=== PATIENT | female | born 1975 | race Caucasian/White ===

== ENCOUNTER 2021-05-02 07:44 | Inpatient (IN) | payer OTHER, SELFPAY ==
[2021-05-02 08:55] LABS: #Eosinphils 0.1 thou/uL (0.0-0.7); #Lymphocytes 0.9 thou/uL (1.20-3.40); #Monocytes 0.3 thou/uL (0.11-0.59); #Neutrophils 2.9 thou/uL (1.40-6.50); %Basophils 0.7 % (0.0-1.0); %Eosinophils 1.3 % (0.0-10.0); %Lymphocytes 21.4 % (21.0-51.0); %Monocytes 6.9 % (0.0-10.0); %Neutrophils 69.8 % (42.0-75.0); Hemoglobin 12.5 g/dL (12.0-16.0); Mean Corpuscular HGB CONC 33.9 g/dL (32.0-36.0); Mean Corpuscular Hemoglobin 30.6 pg (27.0-31.0); Mean Corpuscular Volume 90.4 fL (78.0-98.0); Mean Platelet Volume 8.1 fL (7.4-10.4); Platelet Count 153 thou/uL (130-400); RBC Distribution Width 12.2 % (11.5-14.5); Red Blood Cell (RBC) Count 4.09 mill/uL (4.20-5.40); White Blood Cell (WBC) Count 4.1 thou/uL (4.8-10.8)
[2021-05-02 09:29] LABS: ALT (SGPT) 7 U/L (8-55); Albumin 1.4 g/dL (3.5-5.0); Alkaline Phosphatase 142 U/L (40-110); BUN (Urea Nitrogen) 15 mg/dL (7.0-18.7); Calc. Creatinine Clearance 0 mL/min (70-130); Calcium 7.1 mg/dL (7.8-10.44); Carbon Dioxide 17 mmol/L (22-29); Chloride 111 mmol/L (98-107); Glucose 86 mg/dL (70-105); Sodium 136 mmol/L (136-145)
[2021-05-02 09:35] LABS: Bilirubin, Total 0.2 mg/dL (0.2-1.2)
[2021-05-02] MEDS ORDERED: Iopamidol 370 76% 100 ML VIAL ONE (09:37)
[2021-05-02 09:43] LABS: AST (SGOT) 22 U/L (5-34); Anion Gap 12 mmol/L (10-20); Globulin 3.4 g/dL (2.4-3.5); Protein, Total 4.8 g/dL (6.0-8.3)
[2021-05-02 09:59] LABS: Lipase 7 U/L (8-78)
[2021-05-02] MEDS ORDERED: Morphine 4 MG/ML VIAL ONE ×2 (11:00→15:29)
[2021-05-02] MEDS ORDERED: Ondansetron ODT 4 MG TAB ONE (11:00)
[2021-05-02] MEDS ORDERED: Acetaminophen 325 MG TAB PO PRN (17:04)
[2021-05-02] MEDS ORDERED: Ondansetron PF 4 MG/2 ML Vial IVP PRN (17:04)
[2021-05-02] MEDS ORDERED: Enoxaparin Sodium 80 MG/0.8 ML SYRINGE SC SCH (18:30)
[2021-05-02] MEDS ORDERED: Famotidine 20 MG TAB PO SCH (21:00)
[2021-05-02] MEDS: HYDROcodone/Acetaminophen 10/325 mg Tablet PO PRN (21:00)
[2021-05-02] MEDS: Nicotine 14 MG PATCH TD SCH (21:01)
[2021-05-02] MEDS ORDERED: Morphine 4 MG/ML VIAL SLOW IVP SCH (21:15)
[2021-05-02 21:16] VITALS: BMI 29.2
[2021-05-02 22:35] LABS: SARS-CoV-2 NAA Rapid Test Not Detected (NotDetected)
[2021-05-03] MEDS: HYDROcodone/Acetaminophen 10/325 mg Tablet PO PRN (05:24)
[2021-05-03] MEDS ORDERED: Fentanyl 100 MCG/2 ML VIAL SLOW IVP SCH (05:45)
[2021-05-03 06:46] LABS: #Eosinphils 0.1 thou/uL (0.0-0.7); #Monocytes 0.3 thou/uL (0.11-0.59); #Neutrophils 1.4 thou/uL (1.40-6.50); %Basophils 0.7 % (0.0-1.0); %Eosinophils 2.2 % (0.0-10.0); %Lymphocytes 35.4 % (21.0-51.0); %Monocytes 9.6 % (0.0-10.0); %Neutrophils 52.1 % (42.0-75.0); Mean Corpuscular HGB CONC 34.7 g/dL (32.0-36.0); Mean Corpuscular Hemoglobin 31.3 pg (27.0-31.0); Mean Corpuscular Volume 90.2 fL (78.0-98.0); Platelet Count 142 thou/uL (130-400); RBC Distribution Width 12.2 % (11.5-14.5); Red Blood Cell (RBC) Count 3.51 mill/uL (4.20-5.40); White Blood Cell (WBC) Count 2.7 thou/uL (4.8-10.8)
[2021-05-03 07:03] LABS: Anion Gap 10 mmol/L (10-20); BUN (Urea Nitrogen) 16 mg/dL (7.0-18.7); Calc. Creatinine Clearance 91 mL/min (70-130); Calcium 6.9 mg/dL (7.8-10.44); Carbon Dioxide 23 mmol/L (22-29); Chloride 106 mmol/L (98-107); Glucose 82 mg/dL (70-105); Potassium 3.5 mmol/L (3.5-5.1); Sodium 135 mmol/L (136-145)
[2021-05-03] MEDS ORDERED: predniSONE 50 MG TAB PO SCH (09:00)
[2021-05-03] MEDS ORDERED: predniSONE 20 MG TAB PO SCH (09:00)
[2021-05-03] MEDS: Enoxaparin Sodium 80 MG/0.8 ML SYRINGE SC SCH ×2 (10:09→20:16)
[2021-05-03 19:22] LABS: Bilirubin Negative (Negative); Blood, Urine Small (Negative); Glucose, Urine (Dipstick) Negative (Negative); Ketone, Urine Negative (Negative); Leukocyte Negative (Negative); Nitrite Negative (Negative); Protein, Urine (Dipstick) > or equal to 300 mg/dL (Neg-Trace)
[2021-05-03 19:23] LABS: Clarity Clear (Clear)
[2021-05-03 19:30] LABS: RBC/HPF 0-3 HPF (0-3); Squamous Epithelial 0-3 HPF (0-3); WBC/HPF 0-3 HPF (0-3)
[2021-05-03 19:31] LABS: Bacteria/HPF 1+ HPF (None Seen)
[2021-05-03] MEDS: Nicotine 14 MG PATCH TD SCH (20:17)
[2021-05-04 06:46] LABS: #Lymphocytes 0.6 thou/uL (1.20-3.40); #Monocytes 0.2 thou/uL (0.11-0.59); #Neutrophils 1.3 thou/uL (1.40-6.50); %Basophils 1.6 % (0.0-1.0); %Lymphocytes 29.1 % (21.0-51.0); %Monocytes 9.4 % (0.0-10.0); %Neutrophils 59.9 % (42.0-75.0); Hemoglobin 10.7 g/dL (12.0-16.0); Mean Corpuscular Hemoglobin 29.5 pg (27.0-31.0); Mean Corpuscular Volume 89.2 fL (78.0-98.0); Mean Platelet Volume 7.9 fL (7.4-10.4); Platelet Count 166 thou/uL (130-400); RBC Distribution Width 11.9 % (11.5-14.5); Red Blood Cell (RBC) Count 3.65 mill/uL (4.20-5.40); White Blood Cell (WBC) Count 2.2 thou/uL (4.8-10.8)
[2021-05-04 07:09] LABS: Anion Gap 7 mmol/L (10-20); BUN (Urea Nitrogen) 17 mg/dL (7.0-18.7); Calc. Creatinine Clearance 105 mL/min (70-130); Calcium 7.1 mg/dL (7.8-10.44); Carbon Dioxide 24 mmol/L (22-29); Chloride 108 mmol/L (98-107); Glucose 96 mg/dL (70-105); Potassium 4.1 mmol/L (3.5-5.1); Sodium 135 mmol/L (136-145)
[2021-05-04] MEDS: predniSONE 20 MG TAB PO SCH (08:19)
[2021-05-04] MEDS: Enoxaparin Sodium 80 MG/0.8 ML SYRINGE SC SCH ×2 (09:10→20:51)
[2021-05-04] MEDS ORDERED: Amlodipine 5 MG TAB PO SCH (17:30)
[2021-05-04 17:39] LABS: Creatinine, Urine 135.83 mg/dL (47-110)
[2021-05-04] MEDS ORDERED: Lisinopril 5 MG TAB PO SCH (17:45)
[2021-05-04 20:01] LABS: ANA Symphony (Qualitative) POSITIVE (Negative); ANA Symphony (Quantitative) 3.5 Ratio (< 0.7 Negative); Jo-1 IgG Antibody 0.6 EliAU/mL (<7 Negative); RNP70 IgG Antibody 0.5 EliAU/mL (<7 Negative); Scleroderma-70 IgG Antibody 1.5 EliAU/mL (<7 Negative); Smith D IgG Antibody 9.9 EliAU/mL (<7 Negative)
[2021-05-04 20:03] LABS: ANA Symphony (Qualitative) POSITIVE (Negative); ANA Symphony (Quantitative) 3.4 Ratio (< 0.7 Negative); EliA Thy New Method **** NEW METHOD ****; EliA Vaculitis New Method **** NEW METHOD ****; Jo-1 IgG Antibody 0.7 EliAU/mL (<7 Negative); RNP70 IgG Antibody 0.5 EliAU/mL (<7 Negative); SSA/Ro IgG Antibody 0.9 EliAU/mL (<7 Negative); SSB/La IgG Antibody 1.2 EliAU/mL (<7 Negative); Scleroderma-70 IgG Antibody 1.5 EliAU/mL (<7 Negative); Smith D IgG Antibody 8.9 EliAU/mL (<7 Negative); Thyroid Peroxidase IgG Ab 8.4 IU/mL (<25 Normal)
[2021-05-04] MEDS: Nicotine 14 MG PATCH TD SCH (20:51)
[2021-05-05 06:20] LABS: Anion Gap 9 mmol/L (10-20); BUN (Urea Nitrogen) 23 mg/dL (7.0-18.7); Calc. Creatinine Clearance 102 mL/min (70-130); Calcium 7.1 mg/dL (7.8-10.44); Carbon Dioxide 22 mmol/L (22-29); Chloride 111 mmol/L (98-107); Glucose 108 mg/dL (70-105); Potassium 3.6 mmol/L (3.5-5.1); Sodium 138 mmol/L (136-145)
[2021-05-05 06:27] LABS: #Lymphocytes 0.8 thou/uL (1.20-3.40); #Monocytes 0.2 thou/uL (0.11-0.59); #Neutrophils 1.9 thou/uL (1.40-6.50); %Basophils 0.3 % (0.0-1.0); %Eosinophils 0.2 % (0.0-10.0); %Lymphocytes 27.5 % (21.0-51.0); %Monocytes 7.7 % (0.0-10.0); %Neutrophils 64.2 % (42.0-75.0); Hemoglobin 10.6 g/dL (12.0-16.0); Mean Corpuscular HGB CONC 34.3 g/dL (32.0-36.0); Mean Corpuscular Hemoglobin 30.5 pg (27.0-31.0); Mean Platelet Volume 8.2 fL (7.4-10.4); Platelet Count 170 thou/uL (130-400); RBC Distribution Width 11.9 % (11.5-14.5); Red Blood Cell (RBC) Count 3.47 mill/uL (4.20-5.40); White Blood Cell (WBC) Count 2.9 thou/uL (4.8-10.8)
[2021-05-05] MEDS ORDERED: Amlodipine 5 MG TAB PO SCH (09:00)
[2021-05-05] MEDS: predniSONE 20 MG TAB PO SCH (09:16)
[2021-05-05] MEDS: Lisinopril 5 MG TAB PO SCH (09:17)
[2021-05-05] MEDS: Enoxaparin Sodium 80 MG/0.8 ML SYRINGE SC SCH ×2 (09:18→21:37)
[2021-05-05 12:08] LABS: HBSAB Concentration Less than 8.00 mIU/mL; HBSAg Index 0.43 S/CO (0-0.99); Hep B Core Total Ab Non-Reactive (NonReactive); Hep B Core Total Index 0.09 S/CO (0-0.79); Hep B Surf AB Non-Reactive (NonReactive); Hep B Surf Ag Non-Reactive S/CO (NonReactive); Hep C IgG Ab Non-Reactive (NonReactive); Hep C Index 0.15 S/CO (0-0.79)
[2021-05-05 14:42] LABS: Urine Total Volume 350 mL (600-1600)
[2021-05-05 15:32] LABS: Protein - 24 Hr 5355 mg/24 hr (Less than 300); Protein, Urine 1530 mg/dL (1-14)
[2021-05-05] MEDS: Nicotine 14 MG PATCH TD SCH (21:37)
[2021-05-06] MEDS: Lisinopril 5 MG TAB PO SCH (08:06)
[2021-05-06] MEDS: predniSONE 20 MG TAB PO SCH (08:06)
[2021-05-06] MEDS: Enoxaparin Sodium 80 MG/0.8 ML SYRINGE SC SCH (08:06)
[2021-05-06 08:36] LABS: #Lymphocytes 1.5 thou/uL (1.20-3.40); #Monocytes 0.3 thou/uL (0.11-0.59); #Neutrophils 2.8 thou/uL (1.40-6.50); %Eosinophils 0.6 % (0.0-10.0); %Lymphocytes 32.6 % (21.0-51.0); %Monocytes 6.2 % (0.0-10.0); %Neutrophils 59.7 % (42.0-75.0); Hemoglobin 11.8 g/dL (12.0-16.0); Mean Corpuscular HGB CONC 33.1 g/dL (32.0-36.0); Mean Corpuscular Hemoglobin 29.4 pg (27.0-31.0); Mean Corpuscular Volume 88.7 fL (78.0-98.0); Mean Platelet Volume 7.7 fL (7.4-10.4); Platelet Count 211 thou/uL (130-400); Red Blood Cell (RBC) Count 4.02 mill/uL (4.20-5.40); White Blood Cell (WBC) Count 4.7 thou/uL (4.8-10.8)
[2021-05-06 08:54] LABS: Anion Gap 12 mmol/L (10-20); BUN (Urea Nitrogen) 23 mg/dL (7.0-18.7); Calc. Creatinine Clearance 109 mL/min (70-130); Calcium 7.1 mg/dL (7.8-10.44); Carbon Dioxide 18 mmol/L (22-29); Chloride 112 mmol/L (98-107); Glucose 93 mg/dL (70-105); Potassium 3.6 mmol/L (3.5-5.1); Sodium 138 mmol/L (136-145)
[2021-05-06 12:14] VITALS: BP 132/91; TEMP 98.3
[2021-05-07 19:38] LABS: A/G Ratio 0.4 (0.7-1.7); Albumin 1.4 g/dL (2.9-4.4); Alpha 1 0.2 g/dL (0.0-0.4); Alpha 2 1.3 g/dL (0.4-1.0); Beta 0.8 g/dL (0.7-1.3); Gamma 1.1 g/dL (0.4-1.8); Globulin, Total 3.4 g/dL (2.2-3.9); M-Spike Not Observed g/dL (Not Observed); Protein Electrophoresis Intrp Note: (.)
[2021-05-07 19:38] LABS: Albumin-Ur 39.1 % (.); Alpha 1 - Ur 9.6 % (.); Alpha 2 - Ur 11.5 % (.); Beta-Ur 16.6 % (.); Gamma-Ur 23.1 % (.); M-Spike,% Not Observed % (Not Observed); Protein, Urine 1134.8 mg/dL (Not Estab.)
== END 2021-05-06 14:45 | disposition home or self-care (01) | DRG 300 ==
LOC: ERS 07:44 → ERHOLD 16:16 → SURG B 20:45
PROVIDERS: ADMIT Internal Medicine; ATTEND Internal Medicine
DX: I82.890 Acute embolism and thrombosis of other specified veins (principal); N17.9 Acute kidney failure, unspecified; E78.5 Hyperlipidemia, unspecified; E78.00 Pure hypercholesterolemia, unspecified; I12.9 Hypertensive chronic kidney disease with stage 1 through stage 4 chronic kidney disease, or unspecified chronic kidney disease; F17.210 Nicotine dependence, cigarettes, uncomplicated; M32.9 Systemic lupus erythematosus, unspecified; I25.10 Atherosclerotic heart disease of native coronary artery without angina pectoris; E83.51 Hypocalcemia; N18.2 Chronic kidney disease, stage 2 (mild); R80.9 Proteinuria, unspecified; Z20.822 Contact with and (suspected) exposure to COVID-19; I25.2 Old myocardial infarction; Z95.5 Presence of coronary angioplasty implant and graft; Z86.73 Personal history of transient ischemic attack (TIA), and cerebral infarction without residual deficits; Z98.890 Other specified postprocedural states; Z90.710 Acquired absence of both cervix and uterus; Z88.8 Allergy status to other drugs, medicaments and biological substances; Z88.0 Allergy status to penicillin; Z88.2 Allergy status to sulfonamides; Z86.711 Personal history of pulmonary embolism
CPT/HCPCS: 36415; 71046; 74176; 74177; 80048; 80053; 81001; 82570; 83516; 83690; 83880; 84156; 84165; 84166; 84484; 85025; 85652; 86037; 86038; 86140; 86160; 86225; 86235; 86376; 86704; 86706; 86803; 87340; 93005; 93306; 93970; 96374; J1650; J2270; J3010; J7512; Q0162; Q9967; U0002

== ENCOUNTER 2021-11-05 09:02 | Outpatient (CLI) | payer OTHER | END 2021-11-05 09:03 | disposition home or self-care (01) | LOC: BICMAMMO 09:02 | PROVIDERS: ATTEND Internal Medicine Rheumatology | DX: M81.8 Other osteoporosis without current pathological fracture (principal); M85.851 Other specified disorders of bone density and structure, right thigh | CPT/HCPCS: 77080 ==

== ENCOUNTER 2021-12-13 11:15 | Observation (INO) | payer OTHER ==
[2021-12-13] MEDS ORDERED: Ondansetron PF 4 MG/2 ML Vial ONE (13:07)
[2021-12-13 13:44] LABS: #Basophils 0.1 thou/uL (0.0-0.2); #Monocytes 0.5 thou/uL (0.11-0.59); #Neutrophils 3.7 thou/uL (1.40-6.50); %Basophils 1.3 % (0.0-1.0); %Eosinophils 0.1 % (0.0-10.0); %Lymphocytes 31.9 % (21.0-51.0); %Monocytes 7.7 % (0.0-10.0); Hemoglobin 13.7 g/dL (12.0-16.0); Mean Corpuscular HGB CONC 32.6 g/dL (32.0-36.0); Platelet Count 321 thou/uL (130-400); RBC Distribution Width 14.8 % (11.5-14.5); Red Blood Cell (RBC) Count 4.57 mill/uL (4.20-5.40); White Blood Cell (WBC) Count 6.2 thou/uL (4.8-10.8)
[2021-12-13 14:05] LABS: ALT (SGPT) 11 U/L (8-55); AST (SGOT) 21 U/L (5-34); Albumin 1.6 g/dL (3.5-5.0); Alkaline Phosphatase 148 U/L (40-110); Anion Gap 12 mmol/L (10-20); BUN (Urea Nitrogen) 8 mg/dL (7.0-18.7); Bilirubin, Total Less than 0.2 mg/dL (0.2-1.2); Calc. Creatinine Clearance 0 mL/min (70-130); Calcium 7.6 mg/dL (7.8-10.44); Carbon Dioxide 25 mmol/L (22-29); Chloride 105 mmol/L (98-107); Estimated GFR 112; Globulin 2.9 g/dL (2.4-3.5); Glucose 91 mg/dL (70-105); Lipase 24 U/L (8-78); Potassium 3.6 mmol/L (3.5-5.1); Protein, Total 4.5 g/dL (6.0-8.3); Sodium 138 mmol/L (136-145)
[2021-12-13] MEDS ORDERED: HYDROmorphone 0.5 MG/0.5 ML SYRINGE ONE ×2 (14:25→16:57)
[2021-12-13] MEDS ORDERED: Labetalol HCl 100 MG/20 ML VIAL ONE (14:42)
[2021-12-13] MEDS ORDERED: Promethazine 25 MG TAB ONE (15:07)
[2021-12-13] MEDS ORDERED: Dexamethasone 10 MG/ML VIAL ONE (15:21)
[2021-12-13 15:40] LABS: BHCG - Serum Negative (NEGATIVE); Pregs Control Background? CLEAR/WHITE (CLR/WHITE); Pregs Control Bar Appear? YES (CONTROL BAR)
[2021-12-13] MEDS ORDERED: Iopamidol-370 76% 500 ML 1 ML ONE (16:01)
[2021-12-13] MEDS ORDERED: Acetaminophen 325 MG TAB PO PRN (16:21)
[2021-12-13] MEDS ORDERED: Senokot S 8.6-50 MG TAB PO PRN (16:21)
[2021-12-13] MEDS ORDERED: Ondansetron ODT 4 MG TAB PO PRN (16:21)
[2021-12-13] MEDS ORDERED: hydrALAZINE 20 MG/ML VIAL SLOW IVP PRN (16:27)
[2021-12-13] MEDS ORDERED: Morphine 2 MG/ML VIAL SLOW IVP PRN (17:00)
[2021-12-13 18:00] VITALS: BMI 25.7
[2021-12-13] MEDS ORDERED: HYDROmorphone 0.5 MG/0.5 ML SYRINGE SLOW IVP PRN (18:00)
[2021-12-13] MEDS: Sodium Chloride 0.9% 1,000 ML IV SCH ×2 (18:28→22:46)
[2021-12-13] MEDS: methylPREDNISolone Sod Succ/PF 125 MG/2 ML VIAL IVP SCH (19:37)
[2021-12-13] MEDS: Morphine 2 MG/ML VIAL SLOW IVP PRN ×2 (19:37→23:53)
[2021-12-13] MEDS: Famotidine/PF 20 mg/2ml Vial SLOW IVP SCH (19:38)
[2021-12-13] MEDS: Enoxaparin Sodium 80 MG/0.8 ML SYRINGE SC SCH (19:38)
[2021-12-13] MEDS: Hydroxychloroquine Sulfate 200 MG TAB PO SCH (20:32)
[2021-12-14] MEDS: Ondansetron PF 4 MG/2 ML Vial IVP PRN ×2 (00:09→20:24)
[2021-12-14] MEDS: Sodium Chloride 0.9% 1,000 ML IV SCH (05:14)
[2021-12-14] MEDS: methylPREDNISolone Sod Succ/PF 125 MG/2 ML VIAL IVP SCH ×3 (08:42→20:25)
[2021-12-14] MEDS: Enoxaparin Sodium 80 MG/0.8 ML SYRINGE SC SCH ×2 (08:42→20:21)
[2021-12-14] MEDS: Famotidine/PF 20 mg/2ml Vial SLOW IVP SCH ×2 (08:43→20:24)
[2021-12-14] MEDS: Hydroxychloroquine Sulfate 200 MG TAB PO SCH ×2 (08:43→20:23)
[2021-12-14] MEDS: Lisinopril 5 MG TAB PO SCH (08:43)
[2021-12-14 08:55] LABS: ALT (SGPT) 7 U/L (8-55); AST (SGOT) 16 U/L (5-34); Albumin 1.2 g/dL (3.5-5.0); Alkaline Phosphatase 113 U/L (40-110); Anion Gap 11 mmol/L (10-20); BUN (Urea Nitrogen) 9 mg/dL (7.0-18.7); Bilirubin, Total Less than 0.2 mg/dL (0.2-1.2); CRP (Inflammatory) Less than 0.50 mg/dL (= or < 0.5); Calc. Creatinine Clearance 127 mL/min (70-130); Calcium 6.8 mg/dL (7.8-10.44); Carbon Dioxide 18 mmol/L (22-29); Chloride 111 mmol/L (98-107); Estimated GFR 113; Globulin 2.4 g/dL (2.4-3.5); Glucose 84 mg/dL (70-105); Lipase 18 U/L (8-78); Magnesium 1.4 mg/dL (1.6-2.6); Potassium 4.1 mmol/L (3.5-5.1); Protein, Total 3.6 g/dL (6.0-8.3); Sodium 136 mmol/L (136-145)
[2021-12-14] MEDS ORDERED: Magnesium Sulfate In Water 4 GM in Premix Bag 1 BAG IVPB SCH (10:30)
[2021-12-14] MEDS ORDERED: Mycophenolate 250 MG CAP PO SCH ×2 (10:30→11:00)
[2021-12-14] MEDS ORDERED: Magnesium Sulfate 4 GM in Sodium Chloride 0.9% 250 ML 250 ML IVPB SCH (10:30)
[2021-12-14 10:54] LABS: Hemoglobin 11.9 g/dL (12.0-16.0); Mean Corpuscular HGB CONC 32.8 g/dL (32.0-36.0); Mean Corpuscular Hemoglobin 30.2 pg (27.0-31.0); Mean Platelet Volume 8.7 fL (7.4-10.4); Platelet Count 348 thou/uL (130-400); RBC Distribution Width 14.7 % (11.5-14.5); Red Blood Cell (RBC) Count 3.93 mill/uL (4.20-5.40)
[2021-12-14] MEDS: Lactated Ringer's 1,000 ML IV SCH (11:16)
[2021-12-14 12:42] LABS: Band 6 % (5-11); Lymphocytes 45 % (21-51); MDiff Complete? YES; Monocytes 10 % (0-10); Neutrophil 38 % (42-75); Reactive Lymphocytes 1 % (0-10)
[2021-12-14] MEDS: Mycophenolate 250 MG CAP PO SCH (20:22)
[2021-12-14] MEDS: Morphine 2 MG/ML VIAL SLOW IVP PRN (20:24)
[2021-12-15] MEDS: Lactated Ringer's 1,000 ML IV SCH (01:49)
[2021-12-15 06:08] LABS: #Lymphocytes 1.8 thou/uL (1.20-3.40); #Monocytes 0.4 thou/uL (0.11-0.59); #Neutrophils 3.1 thou/uL (1.40-6.50); %Basophils 0.3 % (0.0-1.0); %Eosinophils 0.9 % (0.0-10.0); %Lymphocytes 33.9 % (21.0-51.0); %Neutrophils 56.9 % (42.0-75.0); Hemoglobin 12.5 g/dL (12.0-16.0); Mean Corpuscular HGB CONC 32.7 g/dL (32.0-36.0); Mean Corpuscular Hemoglobin 30.6 pg (27.0-31.0); Mean Corpuscular Volume 93.4 fL (78.0-98.0); Mean Platelet Volume 8.7 fL (7.4-10.4); Platelet Count 346 thou/uL (130-400); RBC Distribution Width 14.8 % (11.5-14.5); Red Blood Cell (RBC) Count 4.09 mill/uL (4.20-5.40); White Blood Cell (WBC) Count 5.4 thou/uL (4.8-10.8)
[2021-12-15 06:28] LABS: Anion Gap 11 mmol/L (10-20); BUN (Urea Nitrogen) 13 mg/dL (7.0-18.7); Calc. Creatinine Clearance 119 mL/min (70-130); Carbon Dioxide 18 mmol/L (22-29); Chloride 113 mmol/L (98-107); Estimated GFR 111; Glucose 116 mg/dL (70-105); Potassium 4.6 mmol/L (3.5-5.1); Sodium 137 mmol/L (136-145)
[2021-12-15 08:33] VITALS: BP 153/97
[2021-12-15] MEDS: Enoxaparin Sodium 80 MG/0.8 ML SYRINGE SC SCH (09:05)
[2021-12-15] MEDS: Famotidine/PF 20 mg/2ml Vial SLOW IVP SCH (09:05)
[2021-12-15] MEDS: Lisinopril 5 MG TAB PO SCH (09:06)
[2021-12-15] MEDS: Hydroxychloroquine Sulfate 200 MG TAB PO SCH (09:06)
[2021-12-15] MEDS: methylPREDNISolone Sod Succ/PF 125 MG/2 ML VIAL IVP SCH ×2 (09:06→14:51)
[2021-12-15] MEDS: Mycophenolate 250 MG CAP PO SCH (11:06)
[2021-12-15 13:20] VITALS: TEMP 98.4
== END 2021-12-15 15:12 | disposition home or self-care (01) ==
LOC: SUATTDRO 11:15 → ERS 11:15 → T4-B 17:50
PROVIDERS: ADMIT Internal Medicine; ATTEND Internal Medicine
DX: M32.19 Other organ or system involvement in systemic lupus erythematosus (principal); D73.5 Infarction of spleen; M87.851 Other osteonecrosis, right femur; M87.852 Other osteonecrosis, left femur; I10 Essential (primary) hypertension; F17.210 Nicotine dependence, cigarettes, uncomplicated; I25.10 Atherosclerotic heart disease of native coronary artery without angina pectoris; J90 Pleural effusion, not elsewhere classified; J98.11 Atelectasis; E83.42 Hypomagnesemia; R59.1 Generalized enlarged lymph nodes; Z86.010 Personal history of colon polyps; Z86.73 Personal history of transient ischemic attack (TIA), and cerebral infarction without residual deficits; Z79.01 Long term (current) use of anticoagulants; Z79.899 Other long term (current) drug therapy; Z88.0 Allergy status to penicillin; Z88.2 Allergy status to sulfonamides; Z88.8 Allergy status to other drugs, medicaments and biological substances; Z89.611 Acquired absence of right leg above knee; Z20.822 Contact with and (suspected) exposure to COVID-19
CPT/HCPCS: 36415; 70450; 74177; 80048; 80053; 83690; 83735; 84703; 85025; 85652; 86140; 96372; 96375; 96376; G0378; J1100; J1170; J1650; J2270; J2405; J2930; J3475; J7050; J7120; J7517; Q0169; Q9967; S0028; U0003; U0005

== ENCOUNTER 2022-04-30 09:52 | Day surgery (SDC) | payer OTHER ==
[2022-04-30] MEDS ORDERED: CYCLOPHOSPHAMIDE IVPB SCH ×2 (10:30)
[2022-04-30] MEDS ORDERED: WATER IVPB SCH ×2 (10:30)
[2022-04-30] MEDS ORDERED: DEXTROSE 5% IVPB SCH ×2 (10:30)
[2022-04-30] MEDS ORDERED: Ondansetron 2MG/ML MDV 10 MG, Dexamethasone Sod Phosphate 10 MG in Sodium Chloride 0.9%... IVP SCH (10:45)
[2022-04-30 12:05] VITALS: BP 124/76; TEMP 97.1
== END 2022-04-30 13:56 | disposition home or self-care (01) ==
LOC: ONC/OP 09:52
PROVIDERS: ATTEND Internal Medicine Rheumatology
DX: M32.14 Glomerular disease in systemic lupus erythematosus (principal); Z88.0 Allergy status to penicillin; Z88.2 Allergy status to sulfonamides; Z88.8 Allergy status to other drugs, medicaments and biological substances
CPT/HCPCS: 96375; 96413; J1100; J2405; J7070; J9070

== ENCOUNTER 2022-05-16 12:30 | Day surgery (SDC) | payer OTHER ==
[~2022-05-16 12:30] MED LIST: CYCLOPHOSPHAMIDE IVPB SCH; DEXTROSE 5% IVPB SCH; WATER IVPB SCH
[2022-05-16 14:06] VITALS: BP 151/86; TEMP 98.1
== END 2022-05-16 16:52 | disposition home or self-care (01) ==
LOC: ONC/OP 12:30
PROVIDERS: ATTEND Internal Medicine Rheumatology
DX: M32.14 Glomerular disease in systemic lupus erythematosus (principal); Z88.0 Allergy status to penicillin; Z88.2 Allergy status to sulfonamides; Z88.8 Allergy status to other drugs, medicaments and biological substances
CPT/HCPCS: 96413; J7070; J9070

== ENCOUNTER → 2022-05-30 | Day surgery (SDC) | payer OTHER ==
[2022-05-30 14:26] VITALS: BP 123/80; TEMP 98.5
== END | disposition home or self-care (01) ==
LOC: ONC/OP 12:49
PROVIDERS: ATTEND Internal Medicine Rheumatology
DX: M32.14 Glomerular disease in systemic lupus erythematosus (principal); Z88.0 Allergy status to penicillin; Z88.2 Allergy status to sulfonamides; Z88.8 Allergy status to other drugs, medicaments and biological substances
CPT/HCPCS: 96413; J7070; J9070

== ENCOUNTER 2022-06-13 08:49 | Day surgery (SDC) | payer OTHER ==
[2022-06-13 11:34] VITALS: BP 128/86; TEMP 98.7
== END 2022-06-13 13:40 | disposition home or self-care (01) ==
LOC: ONC/OP 08:49
PROVIDERS: ATTEND Internal Medicine Rheumatology
DX: M32.14 Glomerular disease in systemic lupus erythematosus (principal); Z88.0 Allergy status to penicillin; Z88.2 Allergy status to sulfonamides; Z88.8 Allergy status to other drugs, medicaments and biological substances
CPT/HCPCS: 96413; J7070; J9070

== ENCOUNTER 2022-06-13 08:56 | Outpatient (CLI) | payer OTHER ==
[2022-06-13] MEDS ORDERED: Iopamidol 370 76% 100 ML VIAL ONE (17:50)
== END 2022-06-13 08:57 | disposition home or self-care (01) ==
LOC: CT 08:56
PROVIDERS: ATTEND Internal Medicine Hematology & Oncology
DX: D68.61 Antiphospholipid syndrome (principal); R59.0 Localized enlarged lymph nodes; K86.3 Pseudocyst of pancreas; K86.89 Other specified diseases of pancreas; J90 Pleural effusion, not elsewhere classified; M87.9 Osteonecrosis, unspecified
CPT/HCPCS: 74178; 82565; Q9967

== ENCOUNTER 2022-07-10 08:25 | Day surgery (SDC) | payer OTHER ==
[2022-07-10 13:38] VITALS: BP 141/88; TEMP 98.7
== END 2022-07-10 11:10 | disposition home or self-care (01) ==
LOC: ONC/OP 08:25
PROVIDERS: ATTEND Internal Medicine Rheumatology
DX: M32.14 Glomerular disease in systemic lupus erythematosus (principal); Z88.0 Allergy status to penicillin; Z88.2 Allergy status to sulfonamides; Z88.8 Allergy status to other drugs, medicaments and biological substances
CPT/HCPCS: 96413; J7070; J9070

== ENCOUNTER 2022-11-19 08:23 | Outpatient (CLI) | payer OTHER | END 2022-11-19 08:24 | disposition home or self-care (01) | LOC: SCSMRI 08:23 | PROVIDERS: ATTEND Internal Medicine Hematology & Oncology | DX: K76.89 Other specified diseases of liver (principal); K86.9 Disease of pancreas, unspecified; D18.09 Hemangioma of other sites | CPT/HCPCS: 74183 ==

== ENCOUNTER 2023-10-03 02:03 | Inpatient (IN) | payer OTHER ==
[2023-10-03] MEDS ORDERED: fentaNYL 50 mcg/mL 1 mL Vial ONE (02:15)
[2023-10-03 02:23] LABS: #Basophils 0.04 10x3/uL (0.0-0.2); %Basophils 0.3 % (0.0-1.0); %Eosinophils 2.7 % (0.0-10.0); %Lymphocytes 16.1 % (21.0-51.0); %Monocytes 7.1 % (0.0-10.0); %Neutrophils 73.3 % (42.0-75.0); Hematocrit 30.4 % (36.0-47.0); Hemoglobin 10.3 g/dL (12.0-16.0); Mean Corpuscular HGB CONC 33.9 g/dL (32.0-36.0); Mean Corpuscular Hemoglobin 31.5 pg (27.0-31.0); Mean Platelet Volume 10.4 fL (7.4-10.4); Platelet Count 330 10x3/uL (130-400); RBC Distribution Width 13.8 % (11.5-14.5); Red Blood Cell (RBC) Count 3.27 mill/uL (4.20-5.40)
[2023-10-03 02:38] LABS: ALT (SGPT) 10 U/L (8-55); AST (SGOT) 17 U/L (5-34); Albumin 3.1 g/dL (3.5-5.0); Alkaline Phosphatase 95 U/L (40-110); Anion Gap 18 mmol/L (10-20); BUN (Urea Nitrogen) 42 mg/dL (7.0-18.7); Bilirubin, Total 0.2 mg/dL (0.2-1.2); Calc. Creatinine Clearance 0 mL/min (70-130); Calcium 7.9 mg/dL (7.8-10.44); Carbon Dioxide 17 mmol/L (22-29); Chloride 102 mmol/L (98-107); Estimated GFR 22; Globulin 3.3 g/dL (2.4-3.5); Glucose 124 mg/dL (70-105); Protein, Total 6.4 g/dL (6.0-8.3); Sodium 132 mmol/L (136-145)
[2023-10-03] MEDS ORDERED: HYDROmorphone 0.5 MG/0.5 ML SYRINGE ONE ×3 (02:44→06:13)
[2023-10-03] MEDS ORDERED: NOREPINEPHRINE 8 MG/250 ML-D5W 250 ML ONE (05:51)
[2023-10-03] MEDS ORDERED: Ondansetron ODT 4 MG TAB PO PRN (05:59)
[2023-10-03] MEDS ORDERED: Ondansetron PF 4 MG/2 ML Vial IVP PRN (05:59)
[2023-10-03] MEDS ORDERED: Acetaminophen 650 MG Suppository PR PRN (05:59)
[2023-10-03 08:09] LABS: #Basophils 0.03 10x3/uL (0.0-0.2); %Basophils 0.3 % (0.0-1.0); %Eosinophils 0.5 % (0.0-10.0); %Lymphocytes 16.4 % (21.0-51.0); %Monocytes 7.2 % (0.0-10.0); %Neutrophils 74.9 % (42.0-75.0); Hematocrit 24.4 % (36.0-47.0); Hemoglobin 8.1 g/dL (12.0-16.0); Mean Corpuscular HGB CONC 33.2 g/dL (32.0-36.0); Mean Corpuscular Hemoglobin 31.4 pg (27.0-31.0); Mean Corpuscular Volume 94.6 fL (78.0-98.0); Mean Platelet Volume 10.4 fL (7.4-10.4); Platelet Count 300 10x3/uL (130-400); RBC Distribution Width 13.8 % (11.5-14.5); Red Blood Cell (RBC) Count 2.58 mill/uL (4.20-5.40)
[2023-10-03 08:23] LABS: INR-International Normal Ratio 1.1; Prothrombin Time 14.1 sec (12.0-14.7)
[2023-10-03 08:25] LABS: PTT 37.2 sec (22.9-36.1)
[2023-10-03 08:41] LABS: Iron 29 ug/dL (50-170); Iron Binding Capacity, Total 179 mcg/dL (265-497)
[2023-10-03] MEDS: Lactated Ringer's 1,000 ML IV SCH (08:57)
[2023-10-03 09:02] VITALS: BMI 23.6
[2023-10-03] MEDS: Morphine 4 MG/ML VIAL SLOW IVP SCH (09:32)
[2023-10-03 10:15] LABS: Bacteria/HPF None Seen HPF (None Seen); Bilirubin Negative (Negative); Blood, Urine Negative (Negative); CAUTI Indications for Culture Pelvic or flank pain; Clarity Clear (Clear); Glucose, Urine (Dipstick) Normal (Negative); Ketone, Urine Negative (Negative); Leukocyte Negative Leu/uL (Negative); Nitrite Negative (Negative); Protein, Urine (Dipstick) 10 mg/dL (Neg-Trace); RBC/HPF 0-3 HPF (0-3); Specific Gravity, Urine 1.013 (1.002-1.036); Squamous Epithelial None Seen HPF (0-3); Urobilinogen Normal mg/dL (Less than 2); pH, Urine 5.5 (5.0-9.0)
[2023-10-03 10:17] LABS: Urine Culture Reflex Yes Yes
[2023-10-03] MEDS ORDERED: NOREPINEPHRINE 8 MG/250 ML-D5W 250 ML IVPB SCH (10:30)
[2023-10-03] MEDS: Acetaminophen 650 MG/20.3 ML UDCUP PO PRN (11:40)
[2023-10-03] MEDS: Gabapentin 400 MG CAP PO SCH (13:33)
[2023-10-03] MEDS: Morphine 4 MG/ML VIAL SLOW IVP PRN (13:33)
[2023-10-03 14:18] LABS: Hematocrit 28.5 % (36.0-47.0); Hemoglobin 9.5 g/dL (12.0-16.0)
[2023-10-03] MEDS: Mycophenolate 250 MG CAP PO SCH ×2 (15:31→21:20)
[2023-10-03] MEDS: Sodium Chloride 0.9% 1,000 ML IV SCH (15:55)
[2023-10-03] MEDS: Hydrocortisone Sod Succ/PF 100 mg/2 ml Vial IVP SCH (16:23)
[2023-10-03] MEDS: oxyCODONE/Acetaminophen 5 mg/325 mg Tablet PO PRN (19:31)
[2023-10-03] MEDS: Cyclobenzaprine 10 MG TAB PO SCH (23:31)
[2023-10-04] MEDS: diphenhydrAMINE 50 MG/ML VIAL IVP SCH ×2 (01:23→10:01)
[2023-10-04] MEDS: fentaNYL 50 mcg/mL 1 mL Vial SLOW IVP PRN ×2 (01:59→08:45)
[2023-10-04] MEDS: oxyCODONE/Acetaminophen 5 mg/325 mg Tablet PO PRN ×2 (02:41→08:48)
[2023-10-04 05:32] LABS: Amphetamine Not Detected (NotDetected); Barbiturates Screen Not Detected (NotDetected); Benzodiazepine Screen Not Detected (NotDetected); Cocaine Metabolite Screen Not Detected (NotDetected); Methadone Not Detected (NotDetected); Methamphetamine Not Detected (NotDetected); Opiate Screen Detected (NotDetected); Oxycodone Screen Detected (NotDetected); Phencyclidine (PCP) Not Detected (NotDetected); THC/Cannabinoid Screen Not Detected (NotDetected); Tricyclic Screen Not Detected (NotDetected)
[2023-10-04 06:43] LABS: #Basophils Less than 0.03 10x3/uL (0.0-0.2); #Eosinphils Less than 0.03 10x3/uL (0.0-0.7); %Basophils 0.1 % (0.0-1.0); %Eosinophils 0.1 % (0.0-10.0); %Lymphocytes 10.5 % (21.0-51.0); %Monocytes 6.7 % (0.0-10.0); %Neutrophils 81.8 % (42.0-75.0); Hemoglobin 8.5 g/dL (12.0-16.0); Mean Corpuscular Volume 91.2 fL (78.0-98.0); Mean Platelet Volume 10.8 fL (7.4-10.4); Platelet Count 193 10x3/uL (130-400); RBC Distribution Width 14.9 % (11.5-14.5); Red Blood Cell (RBC) Count 2.74 mill/uL (4.20-5.40)
[2023-10-04] MEDS ORDERED: diphenhydrAMINE 50 MG/ML VIAL IVP PRN (08:48)
[2023-10-04 09:41] LABS: Anion Gap 10 mmol/L (10-20); BUN (Urea Nitrogen) 27 mg/dL (7.0-18.7); Calc. Creatinine Clearance 62 mL/min (70-130); Calcium 7.7 mg/dL (7.8-10.44); Carbon Dioxide 15 mmol/L (22-29); Chloride 119 mmol/L (98-107); Estimated GFR 63; Glucose 94 mg/dL (70-105); Potassium 4.9 mmol/L (3.5-5.1); Sodium 139 mmol/L (136-145)
[2023-10-04] MEDS ORDERED: diphenhydrAMINE 50 MG/ML VIAL IM PRN (09:58)
[2023-10-04] MEDS ORDERED: diphenhydrAMINE 25 MG CAP PO PRN (09:58)
[2023-10-04] MEDS ORDERED: Promethazine HCl 25 MG/ML VIAL IM PRN (09:58)
[2023-10-04] MEDS ORDERED: Naloxone HCl 0.4 mg/ml Vial IV PRN (09:58)
[2023-10-04] MEDS ORDERED: Communication Order-Pharmacy FS SCH (10:00)
[2023-10-04] MEDS: Lidocaine 4% Patch TD SCH (10:01)
[2023-10-04] MEDS: HYDROmorphone/PF 10 MG in Sodium Chloride 0.9% 99 ML IV PRN (11:51)
[2023-10-04] MEDS: Transdermal Patch Removal TOP SCH (21:09)
[2023-10-04] MEDS: Ondansetron PF 4 MG/2 ML Vial IVP PRN (21:09)
[2023-10-04] MEDS: diphenhydrAMINE 50 MG/ML VIAL IVP PRN (21:24)
[2023-10-05 07:12] LABS: #Basophils 0.03 10x3/uL (0.0-0.2); %Basophils 0.3 % (0.0-1.0); %Eosinophils 0.7 % (0.0-10.0); %Lymphocytes 10.2 % (21.0-51.0); %Monocytes 8.9 % (0.0-10.0); %Neutrophils 79.2 % (42.0-75.0); Hematocrit 23.9 % (36.0-47.0); Hemoglobin 7.9 g/dL (12.0-16.0); Mean Corpuscular HGB CONC 33.1 g/dL (32.0-36.0); Mean Corpuscular Hemoglobin 29.9 pg (27.0-31.0); Mean Corpuscular Volume 90.5 fL (78.0-98.0); Mean Platelet Volume 10.1 fL (7.4-10.4); Platelet Count 278 10x3/uL (130-400); RBC Distribution Width 14.9 % (11.5-14.5); Red Blood Cell (RBC) Count 2.64 mill/uL (4.20-5.40)
[2023-10-05 08:03] LABS: Anion Gap 10 mmol/L (10-20); BUN (Urea Nitrogen) 10 mg/dL (7.0-18.7); CK (CPK) 420 U/L (29-168); Calc. Creatinine Clearance 110 mL/min (70-130); Calcium 7.8 mg/dL (7.8-10.44); Carbon Dioxide 17 mmol/L (22-29); Chloride 117 mmol/L (98-107); Estimated GFR 111; Glucose 89 mg/dL (70-105); Potassium 4.5 mmol/L (3.5-5.1); Sodium 139 mmol/L (136-145)
[2023-10-05] MEDS ORDERED: Lisinopril 5 MG TAB PO SCH (09:00)
[2023-10-05] MEDS: Sodium Chloride 0.9% 1,000 ML IV SCH (09:34)
[2023-10-05] MEDS: Lisinopril 10 MG TAB PO SCH (09:50)
[2023-10-05] MEDS: Acetaminophen 325 MG TAB PO SCH (22:43)
[2023-10-05 23:24] LABS: #Basophils Less than 0.03 10x3/uL (0.0-0.2); %Basophils 0.2 % (0.0-1.0); %Eosinophils 0.7 % (0.0-10.0); %Lymphocytes 10.7 % (21.0-51.0); %Monocytes 10.5 % (0.0-10.0); %Neutrophils 77.1 % (42.0-75.0); Hematocrit 22.6 % (36.0-47.0); Hemoglobin 7.8 g/dL (12.0-16.0); Mean Corpuscular HGB CONC 34.5 g/dL (32.0-36.0); Mean Corpuscular Volume 89.7 fL (78.0-98.0); Mean Platelet Volume 9.8 fL (7.4-10.4); Platelet Count 287 10x3/uL (130-400); RBC Distribution Width 14.3 % (11.5-14.5); Red Blood Cell (RBC) Count 2.52 mill/uL (4.20-5.40)
[2023-10-05] MEDS: Cefepime 2 GM in Sodium Chloride 0.9% 100 ML IVPB SCH (23:39)
[2023-10-06] MEDS: Vancomycin (BATCH) 1.5 GM in Premix 1 BAG IVPB SCH (00:30)
[2023-10-06 01:27] LABS: Bacteria/HPF None Seen HPF (None Seen); Bilirubin Negative (Negative); Blood, Urine Negative (Negative); CAUTI Indications for Culture Fever or rigors; Clarity Clear (Clear); Glucose, Urine (Dipstick) Normal (Negative); Ketone, Urine Negative (Negative); Leukocyte Negative Leu/uL (Negative); Nitrite Negative (Negative); Protein, Urine (Dipstick) 30 mg/dL (Neg-Trace); RBC/HPF None Seen HPF (0-3); Specific Gravity, Urine 1.006 (1.002-1.036); Squamous Epithelial 0-3 HPF (0-3); Urobilinogen Normal mg/dL (Less than 2); WBC/HPF 0-3 HPF (0-3)
[2023-10-06 01:29] LABS: Urine Culture Reflex No No
[2023-10-06 01:43] LABS: ALT (SGPT) 13 U/L (8-55); AST (SGOT) 24 U/L (5-34); Albumin 2.1 g/dL (3.5-5.0); Alkaline Phosphatase 74 U/L (40-110); Anion Gap 13 mmol/L (10-20); BUN (Urea Nitrogen) 8 mg/dL (7.0-18.7); Bilirubin, Total 0.4 mg/dL (0.2-1.2); Calc. Creatinine Clearance 108 mL/min (70-130); Calcium 7.8 mg/dL (7.8-10.44); Carbon Dioxide 18 mmol/L (22-29); Chloride 112 mmol/L (98-107); Estimated GFR 111; Globulin 2.8 g/dL (2.4-3.5); Glucose 105 mg/dL (70-105); Protein, Total 4.9 g/dL (6.0-8.3); Sodium 139 mmol/L (136-145)
[2023-10-06 07:25] LABS: Complement-C3 126 mg/dL (83-193); Complement-C4 40 mg/dL (15-57)
[2023-10-06 08:41] LABS: #Basophils 0.04 10x3/uL (0.0-0.2); %Basophils 0.4 % (0.0-1.0); %Eosinophils 0.9 % (0.0-10.0); %Lymphocytes 7.2 % (21.0-51.0); %Monocytes 9.4 % (0.0-10.0); %Neutrophils 81.4 % (42.0-75.0); Hematocrit 23.1 % (36.0-47.0); Hemoglobin 7.7 g/dL (12.0-16.0); Mean Corpuscular HGB CONC 33.3 g/dL (32.0-36.0); Mean Corpuscular Hemoglobin 31.3 pg (27.0-31.0); Mean Corpuscular Volume 93.9 fL (78.0-98.0); Mean Platelet Volume 11.6 fL (7.4-10.4); Platelet Count 207 10x3/uL (130-400); RBC Distribution Width 14.5 % (11.5-14.5); Red Blood Cell (RBC) Count 2.46 mill/uL (4.20-5.40)
[2023-10-06 08:59] LABS: Anion Gap 13 mmol/L (10-20); BUN (Urea Nitrogen) 8 mg/dL (7.0-18.7); Calc. Creatinine Clearance 122 mL/min (70-130); Calcium 8.1 mg/dL (7.8-10.44); Carbon Dioxide 17 mmol/L (22-29); Chloride 115 mmol/L (98-107); Estimated GFR 114; Glucose 92 mg/dL (70-105); Potassium 4.3 mmol/L (3.5-5.1); Sodium 141 mmol/L (136-145)
[2023-10-06] MEDS: Vancomycin (BATCH) 1.25 GM in Premix 1 BAG IVPB SCH (09:08)
[2023-10-06] MEDS: BELIMUMAB 200 MG SC SCH (17:06)
[2023-10-06] MEDS: Transdermal Patch Removal TOP SCH (22:02)
[2023-10-07 05:09] LABS: Vancomycin, Random 30.9 ug/mL (See Comment)
[2023-10-07 08:36] LABS: #Basophils Less than 0.03 10x3/uL (0.0-0.2); %Basophils 0.2 % (0.0-1.0); %Eosinophils 2.4 % (0.0-10.0); %Lymphocytes 10.5 % (21.0-51.0); %Monocytes 12.2 % (0.0-10.0); %Neutrophils 73.6 % (42.0-75.0); Hematocrit 21.6 % (36.0-47.0); Hemoglobin 7.3 g/dL (12.0-16.0); Mean Corpuscular HGB CONC 33.8 g/dL (32.0-36.0); Mean Corpuscular Hemoglobin 30.2 pg (27.0-31.0); Mean Corpuscular Volume 89.3 fL (78.0-98.0); Mean Platelet Volume 9.7 fL (7.4-10.4); Platelet Count 367 10x3/uL (130-400); RBC Distribution Width 14.1 % (11.5-14.5); Red Blood Cell (RBC) Count 2.42 mill/uL (4.20-5.40)
[2023-10-07 09:02] LABS: Anion Gap 10 mmol/L (10-20); BUN (Urea Nitrogen) 9 mg/dL (7.0-18.7); Calc. Creatinine Clearance 114 mL/min (70-130); Carbon Dioxide 21 mmol/L (22-29); Chloride 112 mmol/L (98-107); Estimated GFR 112; Glucose 91 mg/dL (70-105); Potassium 3.4 mmol/L (3.5-5.1); Sodium 140 mmol/L (136-145)
[2023-10-07] MEDS: oxyCODONE/Acetaminophen 5 mg/325 mg Tablet PO PRN (11:12)
[2023-10-07] MEDS: Enoxaparin 60 MG (0.6 mL) SYRINGE SC SCH (21:08)
[2023-10-07] MEDS: Vancomycin HCl 750 MG in Sodium Chloride 0.9% 250 ML 250 ML IVPB SCH (21:08)
[2023-10-07] MEDS: oxyCODONE ER 10 MG TAB PO SCH (21:08)
[2023-10-08 04:51] LABS: #Basophils 0.03 10x3/uL (0.0-0.2); %Basophils 0.4 % (0.0-1.0); %Eosinophils 4.6 % (0.0-10.0); %Lymphocytes 15.5 % (21.0-51.0); %Monocytes 13.2 % (0.0-10.0); Hematocrit 22.5 % (36.0-47.0); Hemoglobin 7.7 g/dL (12.0-16.0); Mean Corpuscular HGB CONC 34.2 g/dL (32.0-36.0); Mean Corpuscular Hemoglobin 31.2 pg (27.0-31.0); Mean Corpuscular Volume 91.1 fL (78.0-98.0); Mean Platelet Volume 9.6 fL (7.4-10.4); Platelet Count 446 10x3/uL (130-400); Red Blood Cell (RBC) Count 2.47 mill/uL (4.20-5.40)
[2023-10-08 05:20] LABS: Vancomycin, Random 21.7 ug/mL (See Comment)
[2023-10-08 05:26] LABS: Anion Gap 10 mmol/L (10-20); BUN (Urea Nitrogen) 10 mg/dL (7.0-18.7); Calc. Creatinine Clearance 106 mL/min (70-130); Calcium 8.4 mg/dL (7.8-10.44); Carbon Dioxide 22 mmol/L (22-29); Chloride 113 mmol/L (98-107); Estimated GFR 110; Glucose 93 mg/dL (70-105); Potassium 3.8 mmol/L (3.5-5.1); Sodium 141 mmol/L (136-145)
[2023-10-08 15:33] VITALS: BP 118/72; TEMP 99.5
[2023-10-10 14:04] LABS: dsDNA IgG Antibody 5.4 IU/mL (<10 Negative)
== END 2023-10-08 18:10 | disposition home or self-care (01) | DRG 604 ==
LOC: ERS 02:03 → CCU 06:17 → MSONC 10-05 15:12
PROVIDERS: ADMIT Student in an Organized Health Care Education/Training Program; ATTEND Internal Medicine
PROC: 3E033XZ Introduction of Vasopressor into Peripheral Vein, Percutaneous Approach (ICD-10-PCS; principal; 2023-10-03)
DX: S70.10XA Contusion of unspecified thigh, initial encounter (principal); J18.9 Pneumonia, unspecified organism; R57.1 Hypovolemic shock; R57.8 Other shock; D62 Acute posthemorrhagic anemia; N17.9 Acute kidney failure, unspecified; S70.02XA Contusion of left hip, initial encounter; M32.9 Systemic lupus erythematosus, unspecified; I10 Essential (primary) hypertension; E78.5 Hyperlipidemia, unspecified; I25.10 Atherosclerotic heart disease of native coronary artery without angina pectoris; W18.30XA Fall on same level, unspecified, initial encounter; F17.200 Nicotine dependence, unspecified, uncomplicated; Z86.718 Personal history of other venous thrombosis and embolism; Z86.711 Personal history of pulmonary embolism; Z86.73 Personal history of transient ischemic attack (TIA), and cerebral infarction without residual deficits; Z89.511 Acquired absence of right leg below knee
CPT/HCPCS: 36415; 36430; 71045; 72192; 74150; 80048; 80053; 80202; 80306; 81001; 82533; 82550; 82565; 82728; 83540; 83550; 83605; 85025; 85610; 85730; 86160; 86225; 86850; 86900; 86901; 87040; 87081; 87086; 87149; 93926; J0692; J1170; J1200; J1650; J1720; J2270; J2405; J3010; J3370; J3490; J7050; J7120; J7517; P9016

== ENCOUNTER 2024-11-18 07:09 | Outpatient (CLI) | payer OTHER ==
[2024-11-18] MEDS ORDERED: Iopamidol 370 76% 100 ML VIAL ONE (11:54)
== END 2024-11-18 07:10 | disposition home or self-care (01) ==
LOC: CT 07:09
PROVIDERS: ATTEND Physician Assistant Medical
DX: R10.31 Right lower quadrant pain (principal); K62.82 Dysplasia of anus; K59.03 Drug induced constipation; N28.9 Disorder of kidney and ureter, unspecified
CPT/HCPCS: 74177; Q9967